=== PATIENT | female | born 1940 | race Caucasian/White ===

== ENCOUNTER 2018-05-17 21:42 | Inpatient (IN) | payer MEDICARE, MEDICAID ==
[2018-05-17] MEDS ORDERED: Sulfamethoxazole/Trimethoprim 800-160 MG Tab PO ONE (22:42)
--- NOTE | 2018-05-17 22:44 | EDM.PDOC ---
ED HPI GENERAL MEDICAL PROBLEM - General Chief Complaint: Fever Stated Complaint: [facility] Time Seen by Provider: 05/17/18 21:55 Source of Information: Reports: Family (Daughter + granddaughter), Residential Records (From [facility]) History Limitations: Reports: Altered Mental Status (Confused) - History of Present Illness INITIAL COMMENTS - FREE TEXT/NARRATIVE: The patient was sent from [facility] with a complaint of confusion, fever, and urinary incontinence. It is unclear how long the patient has had these symptoms. Here in the ED, the patient is hemodynamically stable, however, she is found to have a fever of 101.8. She denies having any pain, including a headache. The patient's PCP is Dr. Janessa Lew. - Related Data Allergies Allergy/AdvReac Type Severity Reaction Status Date / Time egg Allergy Cannot Verified 05/17/18 22:38 Remember morphine Allergy Vomiting Verified 05/17/18 22:37 NSAIDS (Non-Steroidal Allergy Cannot Verified 05/17/18 22:38 Anti-Inflamma Remember Penicillins Allergy Hives Verified 05/17/18 22:37 Difnsqi-Zhv-Tul Reductase Allergy Cannot Verified 05/17/18 22:37 Inhibitor Remember Home Meds: Home Meds Aspirin [Lo-Dose Aspirin EC] 81 mg PO BEDTIME 05/17/18 [History] Atenolol 100 mg PO DAILY 05/17/18 [History] Fluticasone Furoate [Flonase Sensimist] 1 spray NASBOTH BID 05/17/18 [History] Furosemide [Lasix] 20 mg PO DAILY 05/17/18 [History] Isosorbide Mononitrate [Imdur] 30 mg PO DAILY 05/17/18 [History] Levothyroxine [Sythroid] 100 mcg PO DAILY 05/17/18 [History] Loratadine [Claritin] 10 mg PO BEDTIME 05/17/18 [History] Melatonin 10 mg PO BEDTIME 05/17/18 [History] Multivit-Min/Iron Fum/Folic AC [Tcnhv-Rjddwuy-Tqkzsjgw Tablet] 1 tab PO DAILY [History] Nitroglycerin [Nitrostat] 0.4 mg SL ASDIRECTED PRN 05/17/18 [History] Ranitidine HCl [Zantac 75] 1 tab PO BID 05/17/18 [History] amLODIPine Besylate [Amlodipine Besylate] 5 mg PO DAILY 05/17/18 [History] atorvaSTATin [Lipitor] 40 mg PO BEDTIME 05/17/18 [History] Past Medical History Cardiovascular History: Reports: CAD, High Cholesterol, Hypertension, PA (Jan 2004), Other (See Below) (Cerebrovascular disease) Respiratory History: Reports: SOB (nightly CPAP) Genitourinary History: Reports: Chronic Renal Insuffiency (Stage V), Urinary Incontinence, UTI, Recurrent Neurological History: Reports: CVA (April 2004) Endocrine/Metabolic History: Reports: Hypothyroidism - Past Surgical History Cardiovascular Surgical History: Reports: Coronary Artery Bypass (x 4 vessel, 2007) GI Surgical History: Reports: Cholecystectomy Female Surgical History: Reports: Section (x 1), D&C (x 1) Social & Family History - Family History Family Medical History: Noncontributory - Tobacco Use Smoking Status *Q: Former Smoker Years of Tobacco use: 48 Packs/Tins Daily: 2 Month/Year Tobacco Last Used: Quit 2003 - Caffeine Use Caffeine Use: Reports: None - Alcohol Use Alcohol Use History: No - Recreational Drug Use Recreational Drug Use: No - Living Situation & Occupation Living situation: Reports: Single, Assisted Living ([facility]) Occupation: Retired ED ROS GENERAL - Review of Systems Review Of Systems: ROS reveals no pertinent complaints other than HPI. ED EXAM, GENERAL - Physical Exam Exam: See Below Exam Limited By: No Limitations General Appearance: Alert, WD/WN, No Apparent Distress Eye Exam: Bilateral Eye: Normal Inspection Ears: Normal External Exam, Hearing Grossly Normal Nose: Normal Inspection, No Blood Throat/Mouth: Normal Inspection, Normal Lips, Normal Voice, No Airway Compromise Head: Atraumatic, Normocephalic Neck: Normal Inspection, Full Range of Motion Respiratory/Chest: No Respiratory Distress, Lungs Clear, Normal Breath Sounds, No Accessory Muscle Use Cardiovascular: Normal Peripheral Pulses, Regular Rate, Rhythm, No Edema, No Gallop, No JVD, No Murmur, No Rub Peripheral Pulses: 4+: Radial (L), Radial (R) GI/Abdominal: Normal Bowel Sounds, Soft, Non-Tender, No Organomegaly, No Distention, No Abnormal Bruit, No Mass (Female) Exam: Deferred Rectal (Female) Exam: Deferred Back Exam: Normal Inspection, Full Range of Motion, NT Extremities: Normal Inspection, Normal Range of Motion, No Pedal Edema, Normal Capillary Refill Neurological: Alert, No Motor/Sensory Deficits (Moves all extremities spontaneously), Other (Confused, disoriented. Generally weak.) Psychiatric: Other (Unable to assess) Skin Exam: Warm, Dry, Intact, Normal Color, No Rash EKG INTERPRETATION EKG Date: 05/17/18 Time: 22:11 Rhythm: NSR Rate (Beats/Min): 63 [place]: Normal P-Wave: Present (1st degree AVB) QRS: Normal ST-T: Normal QT: Normal Comparison: NA - No Prior EKG Course - Vital Signs Last Recorded V/S: Last Vital Signs Temp 38.8 C H 05/17/18 21:45 Pulse 69 05/17/18 21:45 Resp 18 05/17/18 21:45 BP 163/61 H 05/17/18 21:45 Pulse Ox 94 L 05/17/18 21:45 - Orders/Labs/Meds Orders: Active Orders 24 hr Category Date Time Status EKG Documentation Completion [RC] STAT Care 05/17/18 22:01 Active Chest 2V [CR] Stat Exams 05/17/18 22:03 Taken CULTURE BLOOD [BC] Stat Lab 05/17/18 22:35 Received CULTURE BLOOD [BC] Stat Lab 05/17/18 22:40 Received CULTURE URINE [RM] Stat Lab 05/17/18 21:00 Received INFLUENZA A+B AG SCREEN [RM] Stat Lab 05/17/18 22:17 Ordered Blood Culture x2 Reflex Set [OM.PC] Stat Oth 05/17/18 22:01 Ordered Labs: Laboratory Tests 05/17/18 05/17/18 05/17/18 Range/Units 21:50 22:35 22:35 WBC 8.65 (3.98-10.04) K/mm3 RBC 4.29 (3.98-5.22) M/mm3 Hgb 12.4 (11.2-15.7) gm/L Hct 39.3 (34.1-44.9) % MCV 91.6 (79.4-94.8) fl MCH 28.9 (25.6-32.2) pg MCHC 31.6 L (32.2-35.5) g/dl RDW Std Deviation 49.6 H (36.4-46.3) fL Plt Count 146 L (182-369) K/mm3 MPV 11.1 (9.4-12.3) fl Neutrophils % (Manual) 69 H (40-60) % Band Neutrophils % 0 (0-10) % Lymphocytes % (Manual) 24 (20-40) % Atypical Lymphs % 0 % Monocytes % (Manual) 6 (2-10) % Eosinophils % (Manual) 0 L (0.7-5.8) % Basophils % (Manual) 1 (0.1-1.2) Platelet Estimate Adequate Plt Morphology Comment Normal Anisocytosis 1+ slight RBC Morph Comment Not Reportable PT 10.9 (9.5-12.1) SECONDS INR 1.00 APTT 29 (24-31) SECONDS D-Dimer, Quantitative 2.70 H (0.19-0.50) mg/L Sodium (136-145) mEq/L Potassium (3.5-5.1) mEq/L Chloride (98-107) mEq/L Carbon Dioxide (21-32) mEq/L Anion Gap (5-15) BUN (7-18) mg/dL Creatinine (0.55-1.02) mg/dL Est Cr Clr Drug Dosing mL/min Estimated GFR (MDRD) (>60) mL/min BUN/Creatinine Ratio (14-18) Glucose (83-115) mg/dL Lactic Acid (0.4-2.0) mmol/L Calcium (8.5-10.1) mg/dL Magnesium (1.8-2.4) mg/dl Total Bilirubin (0.2-1.0) mg/dL AST (15-37) U/L ALT (14-59) U/L Alkaline Phosphatase (46-116) U/L Troponin I (0.00-0.056) ng/mL Total Protein (6.4-8.2) g/dl Albumin (3.4-5.0) g/dl Globulin gm/dL Albumin/Globulin Ratio (1-2) Urine Color Light yellow (Yellow) Urine Appearance Slt cloudy H (Clear) Urine pH 6.0 (5.0-8.0) Ur Specific [place] 1.020 (1.005-1.030) Urine Protein 2+ H (Negative) Urine Glucose (UA) Negative (Negative) Urine Ketones Negative (Negative) Urine Occult Blood Trace-intact H (Negative) Urine Nitrite Negative (Negative) Urine Bilirubin Negative (Negative) Urine Urobilinogen 0.2 (0.2-1.0) Ur Leukocyte Esterase 1+ H (Negative) Urine RBC 0-5 (0-5) /hpf Urine WBC 40-50 H (0-5) /hpf Ur Epithelial Cells 0-5 (0-5) /hpf Urine Bacteria Many H (FEW) /hpf Urine Mucus Not seen (FEW) /hpf 05/17/18 05/17/18 Range/Units 22:35 22:35 WBC (3.98-10.04) K/mm3 RBC (3.98-5.22) M/mm3 Hgb (11.2-15.7) gm/L Hct (34.1-44.9) % MCV (79.4-94.8) fl MCH (25.6-32.2) pg MCHC (32.2-35.5) g/dl RDW Std Deviation (36.4-46.3) fL Plt Count (182-369) K/mm3 MPV (9.4-12.3) fl Neutrophils % (Manual) (40-60) % Band Neutrophils % (0-10) % Lymphocytes % (Manual) (20-40) % Atypical Lymphs % % Monocytes % (Manual) (2-10) % Eosinophils % (Manual) (0.7-5.8) % Basophils % (Manual) (0.1-1.2) Platelet Estimate Plt Morphology Comment Anisocytosis RBC Morph Comment PT (9.5-12.1) SECONDS INR APTT (24-31) SECONDS D-Dimer, Quantitative (0.19-0.50) mg/L Sodium 137 (136-145) mEq/L Potassium 4.5 (3.5-5.1) mEq/L Chloride 103 (98-107) mEq/L Carbon Dioxide 23 (21-32) mEq/L Anion Gap 15.5 H (5-15) BUN 46 H (7-18) mg/dL Creatinine 3.1 H (0.55-1.02) mg/dL Est Cr Clr Drug Dosing 12.37 mL/min Estimated GFR (MDRD) 15 (>60) mL/min BUN/Creatinine Ratio 14.8 (14-18) Glucose 115 (83-115) mg/dL Lactic Acid 1.0 (0.4-2.0) mmol/L Calcium 8.8 (8.5-10.1) mg/dL Magnesium 1.9 (1.8-2.4) mg/dl Total Bilirubin 0.6 (0.2-1.0) mg/dL AST 17 (15-37) U/L ALT 20 (14-59) U/L Alkaline Phosphatase 109 (46-116) U/L Troponin I < 0.017 (0.00-0.056) ng/mL Total Protein 7.9 (6.4-8.2) g/dl Albumin 3.6 (3.4-5.0) g/dl Globulin 4.3 gm/dL Albumin/Globulin Ratio 0.8 L (1-2) Urine Color (Yellow) Urine Appearance (Clear) Urine pH (5.0-8.0) Ur Specific [place] (1.005-1.030) Urine Protein (Negative) Urine Glucose (UA) (Negative) Urine Ketones (Negative) Urine Occult Blood (Negative) Urine Nitrite (Negative) Urine Bilirubin (Negative) Urine Urobilinogen (0.2-1.0) Ur Leukocyte Esterase (Negative) Urine RBC (0-5) /hpf Urine WBC (0-5) /hpf Ur Epithelial Cells (0-5) /hpf Urine Bacteria (FEW) /hpf Urine Mucus (FEW) /hpf Meds: Medications Discontinued Medications Generic Name Dose Route Start Last Admin Trade Name Freq PRN Reason Stop Dose Admin Trimethoprim/Sulfamethoxazole 1 tab 05/17/18 22:42 05/17/18 23:05 Septra Ds PO 05/17/18 22:43 1 tab ONETIME ONE Administration - Re-Assessments/Exams Free Text/Narrative Re-Assessment/Exam: 05/17/18 22:43 The patient's urinalysis is consistent with a UTI. I have ordered a urine culture, and will start the patient on oral Bactrim. 05/17/18 22:58 2-view chest radiograph reviewed. Cardiac silhouette is within normal limits. No pulmonary vascular congestion. No pleural effusions. No focal infiltrate. No pneumothorax. Sternotomy wires and cardiac clips noted, consistent with a prior CABG. Formal read per the Radiologist pending. 05/17/18 23:14 The patient's D-dimer returned elevated at 2.70, however, the patient's BUN/Cr are substantially elevated at 46/3.1. The height of the patient's d-dimer is consistent with this degree of renal insufficiency. The remainder of the patient's workup is unremarkable. It appears that the patient's confusion and fever are due to a UTI. I'm told that the patient was unable to stand or even sit up reliably, therefore she will need to be placed into observation until well enough to return to [facility] assisted living. 05/17/18 23:[address] Perry at 23:16. She agrees to place the patient into observation. Departure - Departure Time of Disposition: 23:18 Disposition: Refer to Observation Condition: Fair Clinical Impression: UTI (urinary tract infection), Generalized weakness, Chronic kidney disease - Discharge Information - My Orders Last 24 Hours: My Active Orders 05/17/18 21:00 CULTURE URINE [RM] Stat 05/17/18 22:01 EKG Documentation Completion [RC] STAT Blood Culture x2 Reflex Set [OM.PC] Stat 05/17/18 22:03 Chest 2V [CR] Stat 05/17/18 22:17 INFLUENZA A+B AG SCREEN [RM] Stat 05/17/18 22:35 CULTURE BLOOD [BC] Stat 05/17/18 22:40 CULTURE BLOOD [BC] Stat - Assessment/Plan Last 24 Hours: My Active Orders 05/17/18 21:00 CULTURE URINE [RM] Stat 05/17/18 22:01 EKG Documentation Completion [RC] STAT Blood Culture x2 Reflex Set [OM.PC] Stat 05/17/18 22:03 Chest 2V [CR] Stat 05/17/18 22:17 INFLUENZA A+B AG SCREEN [RM] Stat 05/17/18 22:35 CULTURE BLOOD [BC] Stat 05/17/18 22:40 CULTURE BLOOD [BC] Stat
[2018-05-18] MEDS ORDERED: Sodium Chloride 0.9% 100 ML ONE (00:24)
[2018-05-18] MEDS ORDERED: Acetaminophen 325 MG Tab PO PRN (00:47)
[2018-05-18] MEDS ORDERED: Ondansetron 4 MG/2 ML SDV IVPUSH PRN (00:48)
[2018-05-18] MEDS ORDERED: Temazepam 7.5 MG Cap PO PRN (00:49)
[2018-05-18] MEDS ORDERED: cefTRIAXone 2 GM in Sodium Chloride 0.9% 100 ML IV SCH (01:00)
[2018-05-18] MEDS: Sodium Chloride 0.9% 1,000 ML IV SCH ×3 (01:16→23:47)
[2018-05-18] MEDS: Heparin Sodium 5,000 Units/ML Vial SUBCUT SCH ×3 (03:50→20:17)
--- NOTE | 2018-05-18 08:59 | PCM.HP ---
H&P History of Present Illness - General Date of Service: 05/18/18 Admit Problem/Dx: Admission Diagnosis/Problem Admission Diagnosis/Problem Urinary tract infection Source of Information: Provider History Limitations: Reports: No Limitations - History of Present Illness Initial Comments - Free Text/Narative: 78 year old [facility] resident with AMS, developed an elevated temperature, 101.8F in the ED. No known sick contacts; a UA suggest AUTI.. She received Bactrim DS in the ED. PE and labs support dehydration. The patient has CKD IV- V, there is acute renal failure; D dimer is elevated in that setting therefore unlikely related to a PE. She will be admitted as an observation with telemetry. The patient has a code status of DNR/DNI. Onset of Symptoms: Reports: Unknown/Unsure Duration of Symptoms: Reports: Day(s):, Getting Worse Location: Reports: Generalized Severity: Moderate Improves with: Reports: Medication Worsens with: Reports: None Associated Symptoms: Reports: Confusion, Fever/Chills, Malaise, Weakness - Related Data Allergies/Adverse Reactions: Allergies Allergy/AdvReac Type Severity Reaction Status Date / Time egg Allergy Cannot Verified 05/18/18 02:33 Remember NSAIDS (Non-Steroidal Allergy Cannot Verified 05/18/18 02:33 Anti-Inflamma Remember Penicillins Allergy Hives Verified 05/18/18 02:33 Psuifzm-Oxs-Juj Reductase Allergy Cannot Verified 05/18/18 02:33 Inhibitor Remember morphine AdvReac Vomiting Verified 05/18/18 09:45 Home Medications: Home Meds Aspirin [Lo-Dose Aspirin EC] 81 mg PO BEDTIME 05/17/18 [History] Atenolol 100 mg PO DAILY 05/17/18 [History] Fluticasone Furoate [Flonase Sensimist] 1 spray NASBOTH BID 05/17/18 [History] Furosemide [Lasix] 20 mg PO DAILY 05/17/18 [History] Isosorbide Mononitrate [Imdur] 30 mg PO DAILY 05/17/18 [History] Levothyroxine [Sythroid] 100 mcg PO DAILY 05/17/18 [History] Loratadine [Claritin] 10 mg PO BEDTIME 05/17/18 [History] Melatonin 10 mg PO BEDTIME 05/17/18 [History] Multivit-Min/Iron Fum/Folic AC [Dkxyk-Wuzjeiq-Cepluriw Tablet] 1 tab PO DAILY [History] Nitroglycerin [Nitrostat] 0.4 mg SL ASDIRECTED PRN 05/17/18 [History] Ranitidine HCl [Zantac 75] 1 tab PO BID 05/17/18 [History] amLODIPine Besylate [Amlodipine Besylate] 5 mg PO DAILY 05/17/18 [History] atorvaSTATin [Lipitor] 40 mg PO BEDTIME 05/17/18 [History] Acetaminophen [Tylenol] 1,000 mg PO Q8HR PRN 05/18/18 [History] Loperamide [Imodium AD] 2 - 4 caplet PO ASDIRECTED PRN 05/18/18 [History] Past Medical History HEENT History: Reports: Impaired Vision, Other (See Below) Other HEENT History: pt wears galsses and has an upper denture Cardiovascular History: Reports: CAD, High Cholesterol, Hypertension, CA (Jan 2004), Other (See Below) (Cerebrovascular disease) Respiratory History: Reports: SOB (nightly CPAP) Other Respiratory History: pt has a cpap machine and brought it in with her to the hospital. Gastrointestinal History: Reports: None Genitourinary History: Reports: Chronic Renal Insuffiency (Stage V), Urinary Incontinence, UTI, Recurrent Neurological History: Reports: CVA (April 2004) Endocrine/Metabolic History: Reports: Hypothyroidism - Infectious Disease History Infectious Disease History: Reports: Influenza - Past Surgical History Cardiovascular Surgical History: Reports: Coronary Artery Bypass (x 4 vessel, 2007) GI Surgical History: Reports: Cholecystectomy Female Surgical History: Reports: Section (x 1), D&C (x 1) Social & Family History - Family History Family Medical History: Noncontributory - Tobacco Use Smoking Status *Q: Former Smoker Years of Tobacco use: 48 Packs/Tins Daily: 2 Used Tobacco, but Quit: No Month/Year Tobacco Last Used: Quit 2003 Second Hand Smoke Exposure: No - Caffeine Use Caffeine Use: Reports: None - Recreational Drug Use Recreational Drug Use: No - Living Situation & Occupation Living situation: Reports: Single, Assisted Living ([facility]) Occupation: Retired H&P Review of Systems - Review of Systems: Review Of Systems: See Below General: Reports: Fever, Chills, Malaise, Weakness, Decreased Appetite HEENT: Reports: No Symptoms Pulmonary: Reports: No Symptoms Cardiovascular: Reports: No Symptoms Gastrointestinal: Reports: No Symptoms Genitourinary: Reports: No Symptoms Musculoskeletal: Reports: No Symptoms Skin: Reports: No Symptoms Psychiatric: Reports: Confusion Neurological: Reports: Confusion Hematologic/Lymphatic: Reports: No Symptoms Immunologic: Reports: No Symptoms Exam - Exam Exam: See Below - Vital Signs Vital Signs: Last Vital Signs Temp 37.9 C 05/18/18 04:41 Pulse 68 05/18/18 04:41 Resp 14 05/18/18 04:41 BP 134/72 05/18/18 04:41 Pulse Ox 97 05/18/18 04:41 Weight: 64.954 kg - Exam Quality Assessment: Supplemental Oxygen, DVT Prophylaxis General: Lethargic HEENT: Conjunctiva Clear, EOMI, Normal Nasal Septum, Pupils Equal, Pupils Reactive, PERRLA Neck: Trachea Midline Lungs: Normal Respiratory Effort Cardiovascular: Regular Rate, Regular Rhythm GI/Abdominal Exam: Normal Bowel Sounds, Soft, Non-Tender, No Organomegaly, No Distention (Female) Exam: Deferred Rectal (Female) Exam: Deferred Back Exam: Normal Inspection Extremities: Normal Inspection, Normal Range of Motion, Non-Tender, No Pedal Edema, Slow Capillary Refill Skin: Warm, Dry, Intact Neurological: Cranial Nerves Intact Neuro Extensive - Mental Status: Other (lethargic) Neuro Extensive - Motor, Sensory, Reflexes: CN II-XII Intact Psychiatric: Other (lethargic) - Patient Data Lab Results Last 24 hrs: Laboratory Results - last 24 hr 05/17/18 05/17/18 05/17/18 Range/Units 21:50 22:35 22:35 WBC 8.65 (3.98-10.04) K/mm3 RBC 4.29 (3.98-5.22) M/mm3 Hgb 12.4 (11.2-15.7) gm/L Hct 39.3 (34.1-44.9) % MCV 91.6 (79.4-94.8) fl MCH 28.9 (25.6-32.2) pg MCHC 31.6 L (32.2-35.5) g/dl RDW Std Deviation 49.6 H (36.4-46.3) fL Plt Count 146 L (182-369) K/mm3 MPV 11.1 (9.4-12.3) fl Neut % (Auto) (34.0-71.1) % Lymph % (Auto) (19.3-51.7) % [place] % (Auto) (4.7-12.5) % Eos % (Auto) (0.7-5.8) Baso % (Auto) (0.1-1.2) % Neut # (Auto) (1.56-6.13) K/mm3 Lymph # (Auto) (1.18-3.74) K/mm3 [place] # (Auto) (0.24-0.36) K/mm3 Eos # (Auto) (0.04-0.36) K/mm3 Baso # (Auto) (0.01-0.08) K/mm3 Neutrophils % (Manual) 69 H (40-60) % Band Neutrophils % 0 (0-10) % Lymphocytes % (Manual) 24 (20-40) % Atypical Lymphs % 0 % Monocytes % (Manual) 6 (2-10) % Eosinophils % (Manual) 0 L (0.7-5.8) % Basophils % (Manual) 1 (0.1-1.2) Platelet Estimate Adequate Plt Morphology Comment Normal Anisocytosis 1+ slight RBC Morph Comment Not Reportable PT 10.9 (9.5-12.1) SECONDS INR 1.00 APTT 29 (24-31) SECONDS D-Dimer, Quantitative 2.70 H (0.19-0.50) mg/L Sodium (136-145) mEq/L Potassium (3.5-5.1) mEq/L Chloride (98-107) mEq/L Carbon Dioxide (21-32) mEq/L Anion Gap (5-15) BUN (7-18) mg/dL Creatinine (0.55-1.02) mg/dL Est Cr Clr Drug Dosing mL/min Estimated GFR (MDRD) (>60) mL/min BUN/Creatinine Ratio (14-18) Glucose (83-115) mg/dL Lactic Acid (0.4-2.0) mmol/L Calcium (8.5-10.1) mg/dL Magnesium (1.8-2.4) mg/dl Total Bilirubin (0.2-1.0) mg/dL AST (15-37) U/L ALT (14-59) U/L Alkaline Phosphatase (46-116) U/L Troponin I (0.00-0.056) ng/mL C-Reactive Protein (<1.0) mg/dL Total Protein (6.4-8.2) g/dl Albumin (3.4-5.0) g/dl Globulin gm/dL Albumin/Globulin Ratio (1-2) Urine Color Light yellow (Yellow) Urine Appearance Slt cloudy H (Clear) Urine pH 6.0 (5.0-8.0) Ur Specific [place] 1.020 (1.005-1.030) Urine Protein 2+ H (Negative) Urine Glucose (UA) Negative (Negative) Urine Ketones Negative (Negative) Urine Occult Blood Trace-intact H (Negative) Urine Nitrite Negative (Negative) Urine Bilirubin Negative (Negative) Urine Urobilinogen 0.2 (0.2-1.0) Ur Leukocyte Esterase 1+ H (Negative) Urine RBC 0-5 (0-5) /hpf Urine WBC 40-50 H (0-5) /hpf Ur Epithelial Cells 0-5 (0-5) /hpf Urine Bacteria Many H (FEW) /hpf Urine Mucus Not seen (FEW) /hpf MRSA (PCR) 05/17/18 05/17/18 05/18/18 Range/Units 22:35 22:35 00:40 WBC (3.98-10.04) K/mm3 RBC (3.98-5.22) M/mm3 Hgb (11.2-15.7) gm/L Hct (34.1-44.9) % MCV (79.4-94.8) fl MCH (25.6-32.2) pg MCHC (32.2-35.5) g/dl RDW Std Deviation (36.4-46.3) fL Plt Count (182-369) K/mm3 MPV (9.4-12.3) fl Neut % (Auto) (34.0-71.1) % Lymph % (Auto) (19.3-51.7) % [place] % (Auto) (4.7-12.5) % Eos % (Auto) (0.7-5.8) Baso % (Auto) (0.1-1.2) % Neut # (Auto) (1.56-6.13) K/mm3 Lymph # (Auto) (1.18-3.74) K/mm3 [place] # (Auto) (0.24-0.36) K/mm3 Eos # (Auto) (0.04-0.36) K/mm3 Baso # (Auto) (0.01-0.08) K/mm3 Neutrophils % (Manual) (40-60) % Band Neutrophils % (0-10) % Lymphocytes % (Manual) (20-40) % Atypical Lymphs % % Monocytes % (Manual) (2-10) % Eosinophils % (Manual) (0.7-5.8) % Basophils % (Manual) (0.1-1.2) Platelet Estimate Plt Morphology Comment Anisocytosis RBC Morph Comment PT (9.5-12.1) SECONDS INR APTT (24-31) SECONDS D-Dimer, Quantitative (0.19-0.50) mg/L Sodium 137 (136-145) mEq/L Potassium 4.5 (3.5-5.1) mEq/L Chloride 103 (98-107) mEq/L Carbon Dioxide 23 (21-32) mEq/L Anion Gap 15.5 H (5-15) BUN 46 H (7-18) mg/dL Creatinine 3.1 H (0.55-1.02) mg/dL Est Cr Clr Drug Dosing 12.37 mL/min Estimated GFR (MDRD) 15 (>60) mL/min BUN/Creatinine Ratio 14.8 (14-18) Glucose 115 (83-115) mg/dL Lactic Acid 1.0 (0.4-2.0) mmol/L Calcium 8.8 (8.5-10.1) mg/dL Magnesium 1.9 (1.8-2.4) mg/dl Total Bilirubin 0.6 (0.2-1.0) mg/dL AST 17 (15-37) U/L ALT 20 (14-59) U/L Alkaline Phosphatase 109 (46-116) U/L Troponin I < 0.017 (0.00-0.056) ng/mL C-Reactive Protein (<1.0) mg/dL Total Protein 7.9 (6.4-8.2) g/dl Albumin 3.6 (3.4-5.0) g/dl Globulin 4.3 gm/dL Albumin/Globulin Ratio 0.8 L (1-2) Urine Color (Yellow) Urine Appearance (Clear) Urine pH (5.0-8.0) Ur Specific [place] (1.005-1.030) Urine Protein (Negative) Urine Glucose (UA) (Negative) Urine Ketones (Negative) Urine Occult Blood (Negative) Urine Nitrite (Negative) Urine Bilirubin (Negative) Urine Urobilinogen (0.2-1.0) Ur Leukocyte Esterase (Negative) Urine RBC (0-5) /hpf Urine WBC (0-5) /hpf Ur Epithelial Cells (0-5) /hpf Urine Bacteria (FEW) /hpf Urine Mucus (FEW) /hpf MRSA (PCR) Negative 05/18/18 05/18/18 05/18/18 Range/Units 06:32 06:32 06:32 WBC 10.30 H (3.98-10.04) K/mm3 RBC 4.19 (3.98-5.22) M/mm3 Hgb 12.2 (11.2-15.7) gm/L Hct 38.4 (34.1-44.9) % MCV 91.6 (79.4-94.8) fl MCH 29.1 (25.6-32.2) pg MCHC 31.8 L (32.2-35.5) g/dl RDW Std Deviation 50.2 H (36.4-46.3) fL Plt Count 140 L (182-369) K/mm3 MPV 11.2 (9.4-12.3) fl Neut % (Auto) 74.6 H (34.0-71.1) % Lymph % (Auto) 18.7 L (19.3-51.7) % [place] % (Auto) 6.2 (4.7-12.5) % Eos % (Auto) 0 L (0.7-5.8) Baso % (Auto) 0.4 (0.1-1.2) % Neut # (Auto) 7.68 H (1.56-6.13) K/mm3 Lymph # (Auto) 1.93 (1.18-3.74) K/mm3 [place] # (Auto) 0.64 H (0.24-0.36) K/mm3 Eos # (Auto) 0.00 L (0.04-0.36) K/mm3 Baso # (Auto) 0.04 (0.01-0.08) K/mm3 Neutrophils % (Manual) (40-60) % Band Neutrophils % (0-10) % Lymphocytes % (Manual) (20-40) % Atypical Lymphs % % Monocytes % (Manual) (2-10) % Eosinophils % (Manual) (0.7-5.8) % Basophils % (Manual) (0.1-1.2) Platelet Estimate Plt Morphology Comment Anisocytosis RBC Morph Comment PT (9.5-12.1) SECONDS INR APTT (24-31) SECONDS D-Dimer, Quantitative (0.19-0.50) mg/L Sodium 137 (136-145) mEq/L Potassium 4.2 (3.5-5.1) mEq/L Chloride 104 (98-107) mEq/L Carbon Dioxide 20 L (21-32) mEq/L Anion Gap 17.2 H (5-15) BUN 46 H (7-18) mg/dL Creatinine 2.9 H (0.55-1.02) mg/dL Est Cr Clr Drug Dosing 12.64 mL/min Estimated GFR (MDRD) 16 (>60) mL/min BUN/Creatinine Ratio 15.9 (14-18) Glucose 118 H (83-115) mg/dL Lactic Acid 1.1 (0.4-2.0) mmol/L Calcium 8.6 (8.5-10.1) mg/dL Magnesium 1.9 (1.8-2.4) mg/dl Total Bilirubin (0.2-1.0) mg/dL AST (15-37) U/L ALT (14-59) U/L Alkaline Phosphatase (46-116) U/L Troponin I (0.00-0.056) ng/mL C-Reactive Protein 7.4 H* (<1.0) mg/dL Total Protein (6.4-8.2) g/dl Albumin (3.4-5.0) g/dl Globulin gm/dL Albumin/Globulin Ratio (1-2) Urine Color (Yellow) Urine Appearance (Clear) Urine pH (5.0-8.0) Ur Specific [place] (1.005-1.030) Urine Protein (Negative) Urine Glucose (UA) (Negative) Urine Ketones (Negative) Urine Occult Blood (Negative) Urine Nitrite (Negative) Urine Bilirubin (Negative) Urine Urobilinogen (0.2-1.0) Ur Leukocyte Esterase (Negative) Urine RBC (0-5) /hpf Urine WBC (0-5) /hpf Ur Epithelial Cells (0-5) /hpf Urine Bacteria (FEW) /hpf Urine Mucus (FEW) /hpf MRSA (PCR) Result Diagrams: 05/18/18 06:32 05/18/18 06:32 Luis Results Last 24 hrs: Microbiology 05/17/18 22:17 Influenza Type A Antigen Screen - Final Nasopharyngeal Swab NEGATIVE INFLUENZA A VIRUS AG Influenza Type B Antigen Screen - Final NEGATIVE INFLUENZA B VIRUS AG Problem List Initiated/Reviewed/Updated: Yes Orders Last 24hrs: Active Orders 24 hr Category Date Time Status Patient Status [ADT] Routine ADT 05/17/18 23:58 Active Activity as Tolerated [RC] .Routine Care 05/18/18 01:01 Active CPAP Adult [RT BiPAP/CPAP] [RC] ASDIRECTED Care 05/18/18 01:02 Active Communication Order [RC] 09,21 Care 05/18/18 00:50 Active Clear Liquid Diet [DIET] Diet 05/18/18 Breakfast Active Chest 2V [CR] Stat Exams 05/17/18 22:03 Taken CBC W/O DIFF,HEMOGRAM [HEME] MOTH@0700 Lab 05/19/18 07:00 Ordered CBC W/O DIFF,HEMOGRAM [HEME] MOTH@0700 Lab 05/22/18 07:00 Ordered CBC W/O DIFF,HEMOGRAM [HEME] MOTH@0700 Lab 05/26/18 07:00 Ordered CBC W/O DIFF,HEMOGRAM [HEME] MOTH@0700 Lab 05/29/18 07:00 Ordered CBC W/O DIFF,HEMOGRAM [HEME] MOTH@0700 Lab 06/02/18 07:00 Ordered CBC W/O DIFF,HEMOGRAM [HEME] MOTH@0700 Lab 06/05/18 07:00 Ordered CULTURE BLOOD [BC] Stat Lab 05/17/18 22:35 Received CULTURE BLOOD [BC] Stat Lab 05/17/18 22:40 Received CULTURE URINE [RM] Stat Lab 05/17/18 21:00 Received INFLUENZA A+B AG SCREEN [RM] Stat Lab 05/17/18 22:17 Ordered Acetaminophen [Tylenol] Med 05/18/18 00:47 Active 650 mg PO Q6H PRN Heparin Sodium Med 05/18/18 04:00 Active 5,000 units SUBCUT Q8H Ondansetron [Zofran] Med 05/18/18 00:48 Active 4 mg IVPUSH Q8H PRN Sodium Chloride 0.9% [Normal Saline] 1,000 ml Med 05/18/18 00:45 Active IV ASDIRECTED Temazepam [Restoril] Med 05/18/18 00:49 Active 7.5 mg PO BEDTIME PRN cefTRIAXone [Rocephin] 2 gm Med 05/18/18 01:00 Active Sodium Chloride 0.9% [Normal Saline] 100 ml IV Q24H Blood Culture x2 Reflex Set [OM.PC] Stat Ot 05/17/18 22:01 Ordered Code Status [Resuscitation Status] Routine Resus Stat 05/18/18 00:42 Ordered Medication Orders Acetaminophen (Tylenol) 650 mg PO Q6H PRN PRN Reason: Pain/Fever Heparin Sodium (Porcine) (Heparin Sodium) 5,000 units SUBCUT Q8H [facility] Last Admin: 05/18/18 03:50 Dose: 5,000 units Sodium Chloride (Normal Saline) 1,000 mls @ 100 mls/hr IV ASDIRECTED [facility] Last Admin: 05/18/18 01:16 Dose: 100 mls/hr Ceftriaxone Sodium 2 gm/ (Sodium Chloride) 100 mls @ 100 mls/hr IV Q24H [facility] Last Admin: 05/18/18 01:16 Dose: 100 mls/hr Ondansetron HCl (Zofran) 4 mg IVPUSH Q8H PRN PRN Reason: Nausea Temazepam (Restoril) 7.5 mg PO BEDTIME PRN PRN Reason: Sleep Assessment/Plan Comment:: Impression: Acute mental status change Acute UTI Hx of urinary incontinence Acute renal failure, prerenal Hx of CKD, stage V Elevated D Dimer, doubt PE; likely from renal disease Chronic CAD; hx of CABG; hxz of CA CVA HLD HTN SUKHWINDER on CPAP Former tobacco; COPD Plan: Check TSH; FLP IVF Rocephin; await sensitivity from UrCx Daily labs Home meds DVT/GI prophylaxis Consult CM/PT/OT.
[2018-05-18] MEDS ORDERED: Nitroglycerin 0.4 MG Tab.SL SL PRN (09:52)
[2018-05-18] MEDS ORDERED: guaiFENesin/Dextromethorphan 100-10 MG/5 ML Soln 5 ML Cup PO PRN (17:43)
[2018-05-18] MEDS: Loratadine 10 MG Tab PO SCH (20:17)
[2018-05-18] MEDS: Aspirin 81 MG Tab.EC PO SCH (20:17)
[2018-05-18] MEDS ORDERED: Non-Formulary Medication 1 Each (Melatonin [Melatonin] 10 MG) PO SCH (21:00)
[2018-05-19] MEDS: Heparin Sodium 5,000 Units/ML Vial SUBCUT SCH ×3 (04:42→20:48)
[2018-05-19] MEDS: Levothyroxine 100 MCG Tab PO SCH (05:45)
--- NOTE | 2018-05-19 08:26 | CR ---
Chest: Two views of the chest were obtained. Comparison: Prior chest x-ray of 04/12/09. Heart size is slightly enlarged. Tortuous thoracic aorta is seen. Sternotomy for CABG is noted. Lungs are clear with no acute parenchymal densities. Bony structures are osteopenic. Mild scattered degenerative change is noted within the spine. Impression: 1. Nothing acute is seen on two-view chest x-ray. Diagnostic code #2
[2018-05-19] MEDS: Atenolol 50 MG Tab PO SCH (08:29)
[2018-05-19] MEDS: amLODIPine 5 MG Tab PO SCH (08:29)
[2018-05-19] MEDS: Isosorbide Mononitrate 30 MG Tab.ER PO SCH (08:29)
[2018-05-19] MEDS: Rosuvastatin 10 MG Tab PO SCH (08:29)
[2018-05-19] MEDS: Multivitamins,Therapeutic Tab PO SCH (08:29)
--- NOTE | 2018-05-19 10:17 | PCM.PN ---
- General Info Date of Service: 05/19/18 Admission Dx/Problem (Free Text): Admission Diagnosis/Problem Admission Diagnosis/Problem Urinary tract infection Subjective Update: In to see Jennifer. She is resting comfortably in bed. She is alert but believes she is in [place]. She resides at [facility]. She states she is not in any pain. She denies any dysuria, burning, or frequency. She also denies chest pain , dyspnea, or GI complaints. Nursing reports that patient had an appointment with Urology tomorrow and this has been rescheduled. Functional Status: Reports: Pain Controlled, Tolerating Diet, Ambulating, Urinating - Review of Systems General: Reports: Fever, Chills HEENT: Reports: No Symptoms. Denies: Sinus Congestion, Sore Throat Pulmonary: Reports: No Symptoms. Denies: Shortness of Breath, Cough Cardiovascular: Reports: No Symptoms. Denies: Chest Pain, Palpitations, Edema Gastrointestinal: Reports: No Symptoms. Denies: Abdominal Pain, Constipation, Diarrhea, Nausea, Vomiting Genitourinary: Reports: No Symptoms. Denies: Dysuria, Frequency, Burning, Incontinence Musculoskeletal: Reports: No Symptoms. Denies: Joint Pain Skin: Reports: No Symptoms. Denies: Cyanosis, Pallor Neurological: Reports: No Symptoms. Denies: Confusion, Dizziness, Headache Psychiatric: Reports: No Symptoms. Denies: Confusion, Depression - Patient Data Vitals - Most Recent: Last Vital Signs Temp 98.8 F 05/19/18 08:26 Pulse 56 L 05/19/18 08:26 Resp 18 05/19/18 08:26 BP 141/54 H 05/19/18 08:26 Pulse Ox 93 L 05/19/18 08:26 Weight - Most Recent: 142 lb 11.2 oz I&O - Last 24 Hours: Intake & Output 05/18/18 05/19/18 05/19/18 22:59 06:59 14:59 Intake Total 1920 1350 Output Total 1250 Balance 1920 100 Lab Results Last 24 Hours: Laboratory Results - last 24 hr 05/19/18 05/19/18 05/19/18 Range/Units 06:37 06:37 06:37 WBC 6.77 (3.98-10.04) K/mm3 RBC 3.91 L (3.98-5.22) M/mm3 Hgb 11.5 (11.2-15.7) gm/L Hct 36.0 (34.1-44.9) % MCV 92.1 (79.4-94.8) fl MCH 29.4 (25.6-32.2) pg MCHC 31.9 L (32.2-35.5) g/dl RDW Std Deviation 50.3 H (36.4-46.3) fL Plt Count 119 L (182-369) K/mm3 MPV 11.5 (9.4-12.3) fl Neut % (Auto) 48.9 (34.0-71.1) % Lymph % (Auto) 40.8 (19.3-51.7) % [place] % (Auto) 7.7 (4.7-12.5) % Eos % (Auto) 2.1 (0.7-5.8) Baso % (Auto) 0.4 (0.1-1.2) % Neut # (Auto) 3.31 (1.56-6.13) K/mm3 Lymph # (Auto) 2.76 (1.18-3.74) K/mm3 [place] # (Auto) 0.52 H (0.24-0.36) K/mm3 Eos # (Auto) 0.14 (0.04-0.36) K/mm3 Baso # (Auto) 0.03 (0.01-0.08) K/mm3 Sodium 138 (136-145) mEq/L Potassium 3.8 (3.5-5.1) mEq/L Chloride 107 (98-107) mEq/L Carbon Dioxide 16 L (21-32) mEq/L Anion Gap 18.8 H (5-15) BUN 47 H (7-18) mg/dL Creatinine 2.8 H (0.55-1.02) mg/dL Est Cr Clr Drug Dosing 13.10 mL/min Estimated GFR (MDRD) 16 (>60) mL/min BUN/Creatinine Ratio 16.8 (14-18) Glucose 82 L (83-115) mg/dL Lactic Acid 0.8 (0.4-2.0) mmol/L Calcium 8.2 L (8.5-10.1) mg/dL Magnesium 1.9 (1.8-2.4) mg/dl C-Reactive Protein 14.2 H* (<1.0) mg/dL Luis Results Last 24 Hours: Microbiology 05/17/18 22:40 Aerobic Blood Culture - Preliminary Blood - Venous NO GROWTH AFTER 1 DAY Anaerobic Blood Culture - Preliminary NO GROWTH AFTER 1 DAY 05/17/18 22:35 Aerobic Blood Culture - Preliminary Blood - Venous - Lab Draw NO GROWTH AFTER 1 DAY Anaerobic Blood Culture - Preliminary NO GROWTH AFTER 1 DAY 05/17/18 21:00 Urine Culture - Preliminary Urine, Quick Cath (In-Out) Gram Negative Rods Med Orders - Current: Current Medications Acetaminophen (Tylenol) 650 mg PO Q6H PRN PRN Reason: Pain/Fever Last Admin: 05/18/18 09:24 Dose: 650 mg Amlodipine Besylate (Norvasc) 5 mg PO DAILY [facility] Last Admin: 05/19/18 08:29 Dose: 5 mg Aspirin (Halfprin) 81 mg PO BEDTIME [facility] Last Admin: 05/18/18 20:17 Dose: 81 mg Atenolol (Tenormin) 100 mg PO DAILY [facility] Last Admin: 05/19/18 08:29 Dose: 100 mg Flunisolide (Nasalide Nasal [place]) 0 ml NASBOTH BID [facility] Last Admin: 05/19/18 08:27 Dose: 2 sprays Guaifenesin/Phenylephrine HCl (Robitussin Dm) 10 ml PO Q6H PRN PRN Reason: Cough Last Admin: 05/18/18 18:08 Dose: 10 ml Heparin Sodium (Porcine) (Heparin Sodium) 5,000 units SUBCUT Q8H [facility] Last Admin: 05/19/18 04:42 Dose: 5,000 units Sodium Chloride (Normal Saline) 1,000 mls @ 100 mls/hr IV ASDIRECTED [facility] Last Admin: 05/18/18 23:47 Dose: 100 mls/hr Ceftriaxone Sodium 2 gm/ (Dextrose/Water) 100 mls @ 100 mls/hr IV Q24H [facility] Last Admin: 05/19/18 08:29 Dose: 100 mls/hr Isosorbide Mononitrate (Imdur) 30 mg PO DAILY [facility] Last Admin: 05/19/18 08:29 Dose: 30 mg Levothyroxine Sodium (Synthroid) 100 mcg PO ACBREAKFAST [facility] Last Admin: 05/19/18 05:45 Dose: 100 mcg Loratadine (Claritin) 10 mg PO BEDTIME [facility] Last Admin: 05/18/18 20:17 Dose: 10 mg Multivitamins (Thera) 1 each PO DAILY [facility] Last Admin: 05/19/18 08:29 Dose: 1 each Nitroglycerin (Nitrostat) 0.4 mg SL ASDIRECTED PRN PRN Reason: chest pain Ondansetron HCl (Zofran) 4 mg IVPUSH Q8H PRN PRN Reason: Nausea Rosuvastatin Calcium (Crestor) 10 mg PO DAILY [facility] Last Admin: 05/19/18 08:29 Dose: 10 mg Temazepam (Restoril) 7.5 mg PO BEDTIME PRN PRN Reason: Sleep Discontinued Medications Sodium Chloride (Normal Saline) Confirm Administered Dose 100 mls @ as directed .ROUTE .STK-MED ONE Stop: 05/18/18 00:25 Last Admin: 05/18/18 01:16 Dose: Not Given Ceftriaxone Sodium 2 gm/ (Sodium Chloride) 100 mls @ 100 mls/hr IV Q24H [facility] Last Admin: 05/18/18 01:16 Dose: 100 mls/hr Non-Formulary Medication (Melatonin [Melatonin]) 10 mg PO BEDTIME [facility] Trimethoprim/Sulfamethoxazole (Septra Ds) 1 tab PO ONETIME ONE Stop: 05/17/18 22:43 Last Admin: 05/17/18 23:05 Dose: 1 tab - Exam Quality Assessment: No: Supplemental Oxygen General: Alert, Cooperative, No Acute Distress, Other (Oriented to person and time but believes she is in [place]) HEENT: Pupils Equal, Pupils Reactive, EOMI, Mucous Membr. Moist/[place] Neck: Supple. No: Lymphadenopathy Lungs: Clear to Auscultation, Normal Respiratory Effort Cardiovascular: Regular Rate, Regular Rhythm, No Murmurs GI/Abdominal Exam: Normal Bowel Sounds, Soft, Non-Tender, No Distention (Female) Exam: Deferred Back Exam: Normal Inspection, Full Range of Motion Extremities: Normal Inspection, Normal Range of Motion, Non-Tender, No Pedal Edema Peripheral Pulses: 1+: Posterior Tibial (L), Posterior Tibial (R), Dorsalis Pedis (L), Dorsalis Pedis (R), 2+: Radial (L), Radial (R) Skin: Warm, Dry, Intact Neurological: No New Focal Deficit, Strength Equal Bilateral, Cranial Nerves Intact (grossly ) Psy/Mental Status: Alert, Normal Affect, Normal Mood - Problem List Review Problem List Initiated/Reviewed/Updated: Yes - Plan Plan:: Impression: Acute Acute mental status change - likely 2/2 UTI - TSH pending - [place] staff report patient is normally not confused - CM/SW consult Acute UTI - Risk factors: Hx of urinary incontinence and recurrent UTIs and reported month long diarrhea - Received Bactrim in ED --> changed to Rocephin 2 gm IV q 24 hr - Urine culture preliminary report is gram negative rods - BC after 1 day show no growth - CRP 14.2, was 7.4 - Lactic acid 0.8, was 1.1 - Febrile in ED --> managed with antipyretics - IVF NS at 100 ml/hr - Outpatient Urology appointment tomorrow --> rescheduled Weakness - Likely 2/2 UTI - PT/OT consult Diarrhea - Patient reports diarrhea for past month - Likely contributing to UTI - Will order cdiff Upper respiratory symptoms - New onset - Influenza panel negative Acute renal failure, prerenal - Hx of CKD, stage V - BUN, Cr, and eGFR stable per records - Monitor Elevated D Dimer - 2.7 in ED - PE unlikely --> CXR negative and she is not having any dyspnea - Likely from renal disease Resolved Leukocytosis - WBC 10.3 in ED, now 6.77 - Likely 2/2 current medical state Chronic CAD with hx of AL and CABG --> will order lipid panel CVA HLD HTN SUKHWINDER on CPAP Former tobacco COPD Hypothyroidism --> TSH pending Plan: TSH pending Continue IVF Continue Rocephin Pending sensitivity from Urine Culture; initial report gram negative rods Routine AM labs Resume Home meds Advance diet to Heart Healthy DVT prophylaxis: SCDs Consult CM/SW Consult PT/OT
[2018-05-19] MEDS: Sodium Chloride 0.9% 1,000 ML IV SCH ×2 (11:21→21:54)
[2018-05-19] MEDS: Aspirin 81 MG Tab.EC PO SCH (20:51)
[2018-05-19] MEDS: Loratadine 10 MG Tab PO SCH (20:51)
[2018-05-20] MEDS: Levothyroxine 100 MCG Tab PO SCH (05:06)
[2018-05-20] MEDS: Heparin Sodium 5,000 Units/ML Vial SUBCUT SCH ×3 (05:07→20:21)
[2018-05-20] MEDS: Sodium Chloride 0.9% 1,000 ML IV SCH (07:39)
[2018-05-20] MEDS ORDERED: Magnesium Sulfate/Water 2 GM in Premix Bag 1 BAG IV ONE (07:43)
[2018-05-20] MEDS: Rosuvastatin 10 MG Tab PO SCH (08:11)
[2018-05-20] MEDS: Multivitamins,Therapeutic Tab PO SCH (08:11)
[2018-05-20] MEDS: Isosorbide Mononitrate 30 MG Tab.ER PO SCH (09:00)
[2018-05-20] MEDS: amLODIPine 5 MG Tab PO SCH (09:00)
[2018-05-20] MEDS ORDERED: Cephalexin 500 MG Cap PO SCH (09:00)
[2018-05-20] MEDS: Atenolol 50 MG Tab PO SCH (09:00)
--- NOTE | 2018-05-20 10:11 | PCM.PN ---
- General Info Date of Service: 05/20/18 Admission Dx/Problem (Free Text): Admission Diagnosis/Problem Admission Diagnosis/Problem Urinary tract infection Subjective Update: In to see Jennifer. She is resting comfortably in chair at bedside. She is alert and oriented x 3 today. She states she feels the "same as I did yesterday". She denies any dysuria, burning, or frequency. She also denies chest pain, dyspnea. She does endorse diarrhea; cdiff evaluated yesterday and was negative. PCP records indicate patient has chronic diarrhea. Functional Status: Reports: Pain Controlled, Tolerating Diet, Ambulating, Urinating - Review of Systems General: Reports: No Symptoms. Denies: Fever, Weakness, Chills HEENT: Reports: No Symptoms. Denies: Sinus Congestion, Sore Throat Pulmonary: Reports: No Symptoms. Denies: Shortness of Breath, Cough Cardiovascular: Reports: No Symptoms. Denies: Chest Pain, Edema Gastrointestinal: Reports: Diarrhea (chronic). Denies: Abdominal Pain, Constipation, Nausea, Vomiting Genitourinary: Reports: No Symptoms. Denies: Dysuria, Frequency, Burning Musculoskeletal: Reports: No Symptoms. Denies: Joint Pain Skin: Reports: No Symptoms. Denies: Cyanosis Neurological: Reports: No Symptoms. Denies: Confusion, Dizziness, Headache Psychiatric: Reports: No Symptoms. Denies: Confusion, Depression, Anxiety - Patient Data Vitals - Most Recent: Last Vital Signs Temp 97.9 F 05/20/18 07:26 Pulse 51 L 05/20/18 09:00 Resp 18 05/20/18 07:26 BP 134/58 L 05/20/18 09:00 Pulse Ox 94 L 05/20/18 07:26 Weight - Most Recent: 149 lb 8 oz I&O - Last 24 Hours: Intake & Output 05/19/18 05/20/18 05/20/18 22:59 06:59 14:59 Intake Total 1380 1397 Output Total 1100 Balance 1380 297 Lab Results Last 24 Hours: Laboratory Results - last 24 hr 05/19/18 05/19/18 05/20/18 Range/Units 06:37 09:05 06:00 WBC 5.55 (3.98-10.04) K/mm3 RBC 3.37 L (3.98-5.22) M/mm3 Hgb 9.8 L (11.2-15.7) gm/L Hct 31.4 L (34.1-44.9) % MCV 93.2 (79.4-94.8) fl MCH 29.1 (25.6-32.2) pg MCHC 31.2 L (32.2-35.5) g/dl RDW Std Deviation 49.4 H (36.4-46.3) fL Plt Count 117 L (182-369) K/mm3 MPV 11.8 (9.4-12.3) fl Neut % (Auto) 41.5 (34.0-71.1) % Lymph % (Auto) 43.2 (19.3-51.7) % [place] % (Auto) 8.1 (4.7-12.5) % Eos % (Auto) 6.8 H (0.7-5.8) Baso % (Auto) 0.4 (0.1-1.2) % Neut # (Auto) 2.30 (1.56-6.13) K/mm3 Lymph # (Auto) 2.40 (1.18-3.74) K/mm3 [place] # (Auto) 0.45 H (0.24-0.36) K/mm3 Eos # (Auto) 0.38 H (0.04-0.36) K/mm3 Baso # (Auto) 0.02 (0.01-0.08) K/mm3 Sodium (136-145) mEq/L Potassium (3.5-5.1) mEq/L Chloride (98-107) mEq/L Carbon Dioxide (21-32) mEq/L Anion Gap (5-15) BUN (7-18) mg/dL Creatinine (0.55-1.02) mg/dL Est Cr Clr Drug Dosing mL/min Estimated GFR (MDRD) (>60) mL/min BUN/Creatinine Ratio (14-18) Glucose (83-115) mg/dL Lactic Acid (0.4-2.0) mmol/L Calcium (8.5-10.1) mg/dL Magnesium (1.8-2.4) mg/dl C-Reactive Protein (<1.0) mg/dL Triglycerides (<150) mg/dL Cholesterol (<200) mg/dL LDL Cholesterol Direct (<100) mg/dL HDL Cholesterol (40-59) mg/dL TSH 3rd Generation 3.175 (0.358-3.74) uIU/mL C.difficile 027-[id number] Presumptive negative C. difficile Tox (PCR) Negative 05/20/18 05/20/18 05/20/18 Range/Units 06:00 06:00 06:00 WBC (3.98-10.04) K/mm3 RBC (3.98-5.22) M/mm3 Hgb (11.2-15.7) gm/L Hct (34.1-44.9) % MCV (79.4-94.8) fl MCH (25.6-32.2) pg MCHC (32.2-35.5) g/dl RDW Std Deviation (36.4-46.3) fL Plt Count (182-369) K/mm3 MPV (9.4-12.3) fl Neut % (Auto) (34.0-71.1) % Lymph % (Auto) (19.3-51.7) % [place] % (Auto) (4.7-12.5) % Eos % (Auto) (0.7-5.8) Baso % (Auto) (0.1-1.2) % Neut # (Auto) (1.56-6.13) K/mm3 Lymph # (Auto) (1.18-3.74) K/mm3 [place] # (Auto) (0.24-0.36) K/mm3 Eos # (Auto) (0.04-0.36) K/mm3 Baso # (Auto) (0.01-0.08) K/mm3 Sodium 140 (136-145) mEq/L Potassium 4.1 (3.5-5.1) mEq/L Chloride 111 H (98-107) mEq/L Carbon Dioxide 17 L (21-32) mEq/L Anion Gap 16.1 H (5-15) BUN 45 H (7-18) mg/dL Creatinine 2.6 H (0.55-1.02) mg/dL Est Cr Clr Drug Dosing 14.10 mL/min Estimated GFR (MDRD) 18 (>60) mL/min BUN/Creatinine Ratio 17.3 (14-18) Glucose 98 (83-115) mg/dL Lactic Acid 0.4 (0.4-2.0) mmol/L Calcium 7.8 L (8.5-10.1) mg/dL Magnesium 1.7 L (1.8-2.4) mg/dl C-Reactive Protein 7.5 H* (<1.0) mg/dL Triglycerides 111 (<150) mg/dL Cholesterol 118 (<200) mg/dL LDL Cholesterol Direct 64 (<100) mg/dL HDL Cholesterol 35.0 L (40-59) mg/dL TSH 3rd Generation (0.358-3.74) uIU/mL C.difficile 027-NAP1-B1 C. difficile Tox (PCR) Luis Results Last 24 Hours: Microbiology 05/17/18 22:40 Aerobic Blood Culture - Preliminary Blood - Venous NO GROWTH AFTER 2 DAYS Anaerobic Blood Culture - Preliminary NO GROWTH AFTER 2 DAYS 05/17/18 22:35 Aerobic Blood Culture - Preliminary Blood - Venous - Lab Draw NO GROWTH AFTER 2 DAYS Anaerobic Blood Culture - Preliminary NO GROWTH AFTER 2 DAYS 05/17/18 21:00 Urine Culture - Final Urine, Quick Cath (In-Out) Escherichia Coli Med Orders - Current: Current Medications Acetaminophen (Tylenol) 650 mg PO Q6H PRN PRN Reason: Pain/Fever Last Admin: 05/18/18 09:24 Dose: 650 mg Amlodipine Besylate (Norvasc) 5 mg PO DAILY [facility] Last Admin: 05/20/18 09:00 Dose: 5 mg Aspirin (Halfprin) 81 mg PO BEDTIME [facility] Last Admin: 05/19/18 20:51 Dose: 81 mg Atenolol (Tenormin) 100 mg PO DAILY [facility] Last Admin: 05/20/18 09:00 Dose: Not Given Flunisolide (Nasalide Nasal [place]) 0 ml NASBOTH BID [facility] Last Admin: 05/20/18 08:12 Dose: 2 sprays Guaifenesin/Phenylephrine HCl (Robitussin Dm) 10 ml PO Q6H PRN PRN Reason: Cough Last Admin: 05/18/18 18:08 Dose: 10 ml Heparin Sodium (Porcine) (Heparin Sodium) 5,000 units SUBCUT Q8H [facility] Last Admin: 05/20/18 05:07 Dose: 5,000 units Sodium Chloride (Normal Saline) 1,000 mls @ 100 mls/hr IV ASDIRECTED [facility] Last Admin: 05/20/18 07:39 Dose: 100 mls/hr Ceftriaxone Sodium 2 gm/ (Dextrose/Water) 100 mls @ 100 mls/hr IV Q24H [facility] Last Admin: 05/20/18 08:11 Dose: 100 mls/hr Isosorbide Mononitrate (Imdur) 30 mg PO DAILY [facility] Last Admin: 05/20/18 09:00 Dose: Not Given Levothyroxine Sodium (Synthroid) 100 mcg PO ACBREAKFAST [facility] Last Admin: 05/20/18 05:06 Dose: 100 mcg Loratadine (Claritin) 10 mg PO BEDTIME [facility] Last Admin: 05/19/18 20:51 Dose: 10 mg Multivitamins (Thera) 1 each PO DAILY [facility] Last Admin: 05/20/18 08:11 Dose: 1 each Nitroglycerin (Nitrostat) 0.4 mg SL ASDIRECTED PRN PRN Reason: chest pain Ondansetron HCl (Zofran) 4 mg IVPUSH Q8H PRN PRN Reason: Nausea Rosuvastatin Calcium (Crestor) 10 mg PO DAILY [facility] Last Admin: 05/20/18 08:11 Dose: 10 mg Temazepam (Restoril) 7.5 mg PO BEDTIME PRN PRN Reason: Sleep Discontinued Medications Sodium Chloride (Normal Saline) Confirm Administered Dose 100 mls @ as directed .ROUTE .STK-MED ONE Stop: 05/18/18 00:25 Last Admin: 05/18/18 01:16 Dose: Not Given Ceftriaxone Sodium 2 gm/ (Sodium Chloride) 100 mls @ 100 mls/hr IV Q24H [facility] Last Admin: 05/18/18 01:16 Dose: 100 mls/hr Magnesium Sulfate 2 gm/ Premix 50 mls @ 25 mls/hr IV ONETIME ONE Stop: 05/20/18 09:42 Last Admin: 05/20/18 09:00 Dose: 25 mls/hr Non-Formulary Medication (Melatonin [Melatonin]) 10 mg PO BEDTIME [facility] Trimethoprim/Sulfamethoxazole (Septra Ds) 1 tab PO ONETIME ONE Stop: 05/17/18 22:43 Last Admin: 05/17/18 23:05 Dose: 1 tab - Exam Quality Assessment: DVT Prophylaxis General: Alert, Oriented, Cooperative, No Acute Distress HEENT: Pupils Equal, Pupils Reactive, EOMI, Mucous Membr. Moist/[place] Neck: Supple. No: Lymphadenopathy Lungs: Clear to Auscultation, Normal Respiratory Effort Cardiovascular: Regular Rate, Regular Rhythm, Murmurs (systolic grade I/ ) GI/Abdominal Exam: Normal Bowel Sounds, Soft, Non-Tender, No Distention (Female) Exam: Deferred Back Exam: Normal Inspection, Full Range of Motion Extremities: Normal Inspection, Normal Range of Motion, Non-Tender, No Pedal Edema, Normal Capillary Refill Peripheral Pulses: 1+: Posterior Tibial (L), Posterior Tibial (R), Dorsalis Pedis (L), Dorsalis Pedis (R), 2+: Radial (L), Radial (R) Skin: Warm, Dry, Intact Neurological: No New Focal Deficit, Strength Equal Bilateral, Cranial Nerves Intact (grossly ) Psy/Mental Status: Alert, Normal Affect, Normal Mood - Problem List Review Problem List Initiated/Reviewed/Updated: Yes - My Orders Last 24 Hours: My Active Orders 05/19/18 10:53 Consult to Physical Therapy [PT Evaluation and Treatment] [CONS] Routine 05/19/18 10:54 Consult to Occupational Therapy [OT Evaluation and Treatment] [CONS] Routine C DIFFICILE BY PCR W/NAP1 [MOLEC] Stat 05/19/18 11:37 SCD [Sequential Compression Device] [OM.PC] Routine 05/19/18 Lunch Heart Healthy Diet [DIET] - Plan Plan:: Impression: Acute Acute mental status change, improved - likely 2/2 UTI - TSH 3.175 - [facility] staff report patient is normally not confused --> PCP records indicate memory difficulties at baseline - CM/SW consult Acute UTI - Risk factors: Hx of urinary incontinence and recurrent UTIs and records indicating chronic diarrhea - Received Bactrim in ED --> changed to Rocephin 2 gm IV q 24 hr; will d/c Rocephin and start Keflex 500 mg PO q12h on 05/21/18 x 5 days - Urine culture: E coli - BC after 2 days show no growth - CRP 7.5, was 14.2 - Lactic acid 0.4, was 0.8 - Afebrile - IVF NS at 100 ml/hr --> will decrease to 50 ml/hr as she is having good UOP ; encourage po fluid intake - Outpatient Urology appointment was scheduled for today, this has been rescheduled Acute drop in Hgb - Hgb 9.8 today, 11.5 yesterday - She is not symptomatic - Likely 2/2 volume status - Will order FOBT x 1 Hypomagnesemia - 1.7 today, was 1.9 - Will receive Mg sulfate 2 gm po x 1 dose - Monitor Weakness - Likely 2/2 UTI - PT/OT consult Diarrhea - Patient reports diarrhea for past month - Likely contributing to UTI - Cdiff negative - PCP records indicate chronic diarrhea with recommendation for patient to take Questran but this is not on med rec Acute renal failure, prerenal - Hx of CKD, stage V - BUN, Cr, and eGFR stable per records - PCP records indicate patient follows with Dr. Castellanos - Monitor Elevated D Dimer - 2.7 in ED - PE unlikely --> CXR negative and she is not having any dyspnea - Likely from renal disease Resolved Leukocytosis - WBC 10.3 in ED, now 6.77 - Likely 2/2 current medical state Upper respiratory symptoms - New onset - Influenza panel negative - Respiratory Chronic CAD with hx of NM and CABG CVA HLD --> Lipid panel: Total 118, LDL 64, HDL 35 --> she is on atorvastatin at [facility] and will receive rosuvastatin during admit. Noted myalgias reported with statin, will recommend CoQ10 at D/C HTN SUKHWINDER on CPAP Former tobacco COPD Hypothyroidism Plan: Decrease IVF to 50 ml/hr Check FOBT with Hgb decline D/C Rocephin and initiate Keflex 500 mg po q 12 hr to begin tomorrow, 05/21/18 Routine AM labs Resume Home meds Heart Healthy diet DVT prophylaxis: SCDs and Heparin CM/SW --> plan for discharge tomorrow, 05/21/18, to previous residence at [facility] Continue PT/OT Code Status: DNR/DNI PCP: Dr. Zenon Lew
[2018-05-20] MEDS ORDERED: Sodium Chloride 0.9% 1,000 ML IV SCH (11:30)
[2018-05-20] MEDS: Loratadine 10 MG Tab PO SCH (20:22)
[2018-05-20] MEDS: Aspirin 81 MG Tab.EC PO SCH (20:22)
[2018-05-21] MEDS: Heparin Sodium 5,000 Units/ML Vial SUBCUT SCH ×2 (04:06→12:03)
[2018-05-21] MEDS: Levothyroxine 100 MCG Tab PO SCH (05:06)
[2018-05-21] MEDS ORDERED: Cephalexin 500 MG Cap PO SCH (09:00)
[2018-05-21] MEDS: Isosorbide Mononitrate 30 MG Tab.ER PO SCH (09:53)
[2018-05-21] MEDS: amLODIPine 5 MG Tab PO SCH (09:54)
[2018-05-21] MEDS: Rosuvastatin 10 MG Tab PO SCH (09:58)
[2018-05-21] MEDS: Multivitamins,Therapeutic Tab PO SCH (09:58)
[2018-05-21] MEDS: Atenolol 50 MG Tab PO SCH (11:01)
--- NOTE | 2018-05-21 13:06 | PCM.DCSUM1 ---
Discharge Summary - Hospital Course HPI Initial Comments: 78 year old [facility] resident with AMS, developed an elevated temperature, 101.8F in the ED. Ajay AL reported complaint of confusion, fever, and urinary incontinence. No known sick contacts; a UA suggest AUTI.. She received Bactrim DS in the ED. PE and labs support dehydration. The patient has CKD IV- V, there is acute renal failure; D dimer is elevated in that setting therefore unlikely related to a PE. She will be admitted as an observation with telemetry. The patient has a code status of DNR/DNI. The patient's PCP is Dr. Janessa Lew. Diagnosis: Stroke: No - Discharge Data Discharge Date: 05/21/18 Discharge Disposition: Home, Self-Care 01 Condition: Good - Patient Summary/Data Operative Procedure(s) Performed: None Complications: None Consults: Consultations 05/19/18 10:53 Consult to Physical Therapy [PT Evaluation and Treatment] [CONS] Routine 05/19/18 10:54 Consult to Occupational Therapy [OT Evaluation and Treatment] [CONS] Routine Labs Pending at D/C: None Recommended Follow-up Testing/Procedures: Outpatient 2D Echo PCP in 1 week Planned Operative Procedure(s) after DC: None Hospital Course: Impression: Acute Acute mental status change, improved - likely 2/2 UTI - TSH 3.175 - [facility] staff report patient is normally not confused --> PCP records indicate memory difficulties at baseline - CM/SW consult Acute UTI - Risk factors: Hx of urinary incontinence and recurrent UTIs and records indicating chronic diarrhea - Received Bactrim in ED --> changed to Rocephin 2 gm IV q 24 hr; will d/c Rocephin and start Keflex 500 mg PO q12h on 05/21/18 x 5 days - Urine culture: E coli - BC after 2 days show no growth - CRP improved - Lactic acid 0.4, was 0.8 - Afebrile - IVF NS at 100 ml/hr --> will decrease to 50 ml/hr as she is having good UOP ; encourage po fluid intake - Outpatient Urology appointment was rescheduled Weakness - Likely 2/2 UTI - PT/OT consult Bradycardia - HR has been in 50s - Will decrease atenolol from 100 mg to 50 mg po daily - Will order 24 hour Holter Monitor at D/C - Recommend outpatient 2D Echo Hypertension - This morning BP was elevated --> amlodipine held per nursing - Will adjust amlodipine from q AM to q HS - Restart Lasix at D/C Diarrhea - Patient reports diarrhea for past month - Likely contributing to UTI - Cdiff negative - PCP records indicate chronic diarrhea with recommendation for patient to take Questran but this is not on med rec Acute renal failure, prerenal - Hx of CKD, stage V - BUN, Cr, and eGFR stable per records - PCP records indicate patient follows with Dr. Castellanos - Monitor Elevated D Dimer - 2.7 in ED - PE unlikely --> CXR negative and she is not having any dyspnea - Likely from renal disease Resolved Leukocytosis - WBC 10.3 in ED, now 6.77 - Likely 2/2 current medical state Upper respiratory symptoms - New onset - Influenza panel negative - Respiratory panel --> parainfluenza virus positive; supportive care Hypomagnesemia - 1.7 today, was 1.9 - Will receive Mg sulfate 2 gm IV x 1 dose - Monitor Acute drop in Hgb - Hgb 10.1 today, yesterday 9.8 - She is not symptomatic - Likely 2/2 volume status - FOBT x 1 negative Chronic CAD with hx of PA and CABG CVA HLD --> Lipid panel: Total 118, LDL 64, HDL 35 --> she is on atorvastatin at [facility] and will receive rosuvastatin during admit. Noted myalgias reported with statin, will recommend CoQ10 at D/C HTN SUKHWINDER on CPAP Former tobacco COPD Hypothyroidism Plan: Decrease IVF to 50 ml/hr Check FOBT with Hgb decline D/C Rocephin and initiate Keflex 500 mg po q 12 hr to begin today, 05/21/18 Routine AM labs Resume Home meds Heart Healthy diet DVT prophylaxis: SCDs and Heparin CM/SW --> plan for discharge today, 05/21/18, to previous residence at [facility] Continue PT/OT Code Status: DNR/DNI PCP: Dr. Janessa Lew [place] Hospital Course: Jennifer was admitted for AMS and UTI. She is from [facility]. She was given Bactrim in ED; this was changed to Rocephin 2 gm IV q 24 hr. Urine culture showed E.coli. She will receive Keflex 500 mg po q 12 hr x 5 days at D/C. BC showed no growth after 2 days. Patient also reported chronic diarrhea and this is likely contributing to her recurrent UTIs. Cdiff testing was performed and was negative. With resident's AMS, TSH was ordered and normal at 3.175. During patient's admission, she was often bradycardic. Atenolol was decreased from 100 mg daily to 50 mg daily. Holter monitor for 24 hours ordered at discharge. Recommendation for outpatient 2D echo. Patient was also hypertensive on day of discharge; it was discovered that her amlodipine was held that morning. Decision was made to change amlodipine from q AM to q HS. Patient has history of CKD V and follows with Dr. Castellanos; during admission her renal function was at baseline. Patient was exhibiting upper respiratory symptoms therefore respiratory viral panel was ordered and was parainfluenza positive. Supportive care was provided. Labs showed leukocytosis and hypomagnesemia. Leukocytosis resolved. She received Mg sulfate 2 gm IV x 1. Her Hgb also declined during admission; she was receiving IVF of NS at 100 ml/hr and the decline in Hgb was thought to be volume related, however, FOBT ordered and was negative. Lipids were also evaluated and showed total cholesterol 118, LDL 64, HDL 35. She is on atorvastatin at [facility] and received rosuvastatin during admit. D-dimer elevated in ED; CXR negative and was thought to be likely 2/2 CKD V. New/ updated medications at discharge: amlodipine 5 mg po q HS, atenolol 50 mg po daily, Keflex 500 mg q 12 hr, Robitussin DM 10 ml po q 6 hr prn, Tylenol 650 mg q 6 hr prn pain. She is to see her PCP in 1 week. Patient is stable and ready for discharge back to [facility] today. Patient is agreeable to this plan. - Patient Instructions Diet: Heart Healthy Diet, Usual Diet as Tolerated Activity: As Tolerated Driving: Do Not Drive Showering/Bathing: May Shower Notify Provider of: Fever, Increased Pain, Swelling and Redness - Discharge Plan Prescriptions/Med Rec: Acetaminophen [Tylenol] 650 mg PO Q6H PRN #100 tablet PRN Reason: Pain/Fever amLODIPine Besylate [Amlodipine Besylate] 5 mg PO BEDTIME #30 tablet Atenolol [Tenormin] 50 mg PO DAILY #30 tablet Cephalexin [Keflex] 500 mg PO Q12H #10 cap Dextromethorphan/guaiFENesin [Robitussin DM] 10 ml PO Q6H PRN #120 cup PRN Reason: Cough Home Medications: Home Meds Aspirin [Lo-Dose Aspirin EC] 81 mg PO BEDTIME 05/17/18 [History] Fluticasone Furoate [Flonase Sensimist] 1 spray NASBOTH BID 05/17/18 [History] Furosemide [Lasix] 20 mg PO DAILY 05/17/18 [History] Isosorbide Mononitrate [Imdur] 30 mg PO DAILY 05/17/18 [History] Levothyroxine [Synthroid] 100 mcg PO DAILY 05/17/18 [History] Loratadine [Claritin] 10 mg PO BEDTIME 05/17/18 [History] Melatonin 10 mg PO BEDTIME 05/17/18 [History] Multivit-Min/Iron Fum/Folic AC [Hqdwy-Hjnqcpa-Jgnvazvm Tablet] 1 tab PO DAILY [History] Nitroglycerin [Nitrostat] 0.4 mg SL ASDIRECTED PRN 05/17/18 [History] Ranitidine HCl [Zantac 75] 1 tab PO BID 05/17/18 [History] atorvaSTATin [Lipitor] 40 mg PO BEDTIME 05/17/18 [History] Loperamide [Imodium AD] 2 - 4 caplet PO ASDIRECTED PRN 05/18/18 [History] Acetaminophen [Tylenol] 650 mg PO Q6H PRN #100 tablet 05/21/18 [Rx] Atenolol [Tenormin] 50 mg PO DAILY #30 tablet 05/21/18 [Rx] Cephalexin [Keflex] 500 mg PO Q12H #10 cap 05/21/18 [Rx] Dextromethorphan/guaiFENesin [Robitussin DM] 10 ml PO Q6H PRN #120 cup 05/21/18 [Rx] amLODIPine Besylate [Amlodipine Besylate] 5 mg PO BEDTIME #30 tablet 05/21/18 [ Rx] Patient Handouts: Urinary Tract Infection, Adult, [id number], Chronic Kidney Disease, Adult, [id number] Referrals: Janessa Lew MD [Primary Care Provider] - - Discharge Summary/Plan Comment DC Time >30 min.: Yes (45) - General Info Admission Dx/Problem (Free Text: Admission Diagnosis/Problem Admission Diagnosis/Problem Urinary tract infection Subjective Update: In to see Jennifer. She is resting comfortably in chair at bedside. She is alert to self but did not want to answer the question of where she is currently nor did she know what year it is. She states she is feeling better. She denies any dysuria, burning, or frequency. She also denies chest pain, dyspnea. She is looking forward to returning to [facility] today. Functional Status: Reports: Pain Controlled, Tolerating Diet, Ambulating, Urinating - Review of Systems General: Reports: No Symptoms. Denies: Fever, Weakness HEENT: Reports: No Symptoms. Denies: Sinus Congestion, Sore Throat Pulmonary: Reports: No Symptoms. Denies: Shortness of Breath, Cough Cardiovascular: Reports: No Symptoms. Denies: Chest Pain, Palpitations, Edema Gastrointestinal: Reports: No Symptoms. Denies: Abdominal Pain, Diarrhea, Nausea, Vomiting Genitourinary: Reports: No Symptoms. Denies: Dysuria, Frequency, Burning Musculoskeletal: Reports: No Symptoms. Denies: Joint Pain Skin: Reports: No Symptoms, Cyanosis Neurological: Reports: No Symptoms. Denies: Confusion, Dizziness, Headache Psychiatric: Reports: No Symptoms. Denies: Confusion, Depression, Anxiety - Patient Data Vitals - Most Recent: Last Vital Signs Temp 98.8 F 05/21/18 12:02 Pulse 50 L 05/21/18 12:02 Resp 18 05/21/18 12:02 BP 133/61 05/21/18 12:02 Pulse Ox 97 05/21/18 12:02 Weight - Most Recent: 150 lb 3.2 oz I&O - Last 24 hours: Intake & Output 05/20/18 05/21/18 05/21/18 22:59 06:59 14:59 Intake Total 2034 1068 Output Total 1400 850 Balance 634 218 Lab Results - Last 24 hrs: Laboratory Results - last 24 hr 05/21/18 05/21/18 05/21/18 Range/Units 05:42 05:43 05:43 WBC 5.66 (3.98-10.04) K/mm3 RBC 3.45 L (3.98-5.22) M/mm3 Hgb 10.1 L (11.2-15.7) gm/L Hct 31.8 L (34.1-44.9) % MCV 92.2 (79.4-94.8) fl MCH 29.3 (25.6-32.2) pg MCHC 31.8 L (32.2-35.5) g/dl RDW Std Deviation 49.3 H (36.4-46.3) fL Plt Count 121 L (182-369) K/mm3 MPV 11.4 (9.4-12.3) fl Neut % (Auto) 41.4 (34.0-71.1) % Lymph % (Auto) 44.0 (19.3-51.7) % [place] % (Auto) 6.7 (4.7-12.5) % Eos % (Auto) 7.4 H (0.7-5.8) Baso % (Auto) 0.5 (0.1-1.2) % Neut # (Auto) 2.34 (1.56-6.13) K/mm3 Lymph # (Auto) 2.49 (1.18-3.74) K/mm3 [place] # (Auto) 0.38 H (0.24-0.36) K/mm3 Eos # (Auto) 0.42 H (0.04-0.36) K/mm3 Baso # (Auto) 0.03 (0.01-0.08) K/mm3 Manual Slide Review Normal smear Sodium 136 (136-145) mEq/L Potassium 3.5 (3.5-5.1) mEq/L Chloride 109 H (98-107) mEq/L Carbon Dioxide 18 L (21-32) mEq/L Anion Gap 12.5 (5-15) BUN 37 H (7-18) mg/dL Creatinine 2.2 H (0.55-1.02) mg/dL Est Cr Clr Drug Dosing 16.67 mL/min Estimated GFR (MDRD) 22 (>60) mL/min BUN/Creatinine Ratio 16.8 (14-18) Glucose 97 (83-115) mg/dL Lactic Acid 0.7 (0.4-2.0) mmol/L Calcium 8.0 L (8.5-10.1) mg/dL Magnesium 2.1 (1.8-2.4) mg/dl C-Reactive Protein 4.4 H* (<1.0) mg/dL YUSRA Results - Last 24 hrs: Microbiology 05/20/18 05:00 Stool Occult Blood (YUSRA) - Final Stool / Feces NEGATIVE OCCULT BLOOD 05/19/18 18:10 Respiratory Virus Panel (PCR) - Final Nasopharyngeal Swab 05/17/18 22:40 Aerobic Blood Culture - Preliminary Blood - Venous NO GROWTH AFTER 3 DAYS Anaerobic Blood Culture - Preliminary NO GROWTH AFTER 3 DAYS 05/17/18 22:35 Aerobic Blood Culture - Preliminary Blood - Venous - Lab Draw NO GROWTH AFTER 3 DAYS Anaerobic Blood Culture - Preliminary NO GROWTH AFTER 3 DAYS Med Orders - Current: Current Medications Acetaminophen (Tylenol) 650 mg PO Q6H PRN PRN Reason: Pain/Fever Last Admin: 05/18/18 09:24 Dose: 650 mg Amlodipine Besylate (Norvasc) 5 mg PO DAILY [facility] Last Admin: 05/21/18 09:54 Dose: 5 mg Aspirin (Halfprin) 81 mg PO BEDTIME [facility] Last Admin: 05/20/18 20:22 Dose: 81 mg Atenolol (Tenormin) 100 mg PO DAILY [facility] Last Admin: 05/21/18 11:01 Dose: 50 mg Cephalexin (Keflex) 500 mg PO Q12H [facility] Last Admin: 05/21/18 09:58 Dose: 500 mg Flunisolide (Nasalide Nasal [place]) 0 ml NASBOTH BID [facility] Last Admin: 05/21/18 09:58 Dose: 1 sprays Guaifenesin/Phenylephrine HCl (Robitussin Dm) 10 ml PO Q6H PRN PRN Reason: Cough Last Admin: 05/18/18 18:08 Dose: 10 ml Heparin Sodium (Porcine) (Heparin Sodium) 5,000 units SUBCUT Q8H [facility] Last Admin: 05/21/18 12:03 Dose: 5,000 units Sodium Chloride (Normal Saline) 1,000 mls @ 50 mls/hr IV ASDIRECTED [facility] Last Admin: 05/20/18 23:12 Dose: 50 mls/hr Isosorbide Mononitrate (Imdur) 30 mg PO DAILY [facility] Last Admin: 05/21/18 09:53 Dose: 30 mg Levothyroxine Sodium (Synthroid) 100 mcg PO ACBREAKFAST [facility] Last Admin: 05/21/18 05:06 Dose: 100 mcg Loratadine (Claritin) 10 mg PO BEDTIME [facility] Last Admin: 05/20/18 20:22 Dose: 10 mg Multivitamins (Thera) 1 each PO DAILY [facility] Last Admin: 05/21/18 09:58 Dose: 1 each Nitroglycerin (Nitrostat) 0.4 mg SL ASDIRECTED PRN PRN Reason: chest pain Ondansetron HCl (Zofran) 4 mg IVPUSH Q8H PRN PRN Reason: Nausea Rosuvastatin Calcium (Crestor) 10 mg PO DAILY [facility] Last Admin: 05/21/18 09:58 Dose: 10 mg Temazepam (Restoril) 7.5 mg PO BEDTIME PRN PRN Reason: Sleep Last Admin: 05/21/18 00:05 Dose: 7.5 mg Discontinued Medications Cephalexin (Keflex) 500 mg PO Q12H [facility] Last Admin: 05/20/18 19:37 Dose: Not Given Sodium Chloride (Normal Saline) Confirm Administered Dose 100 mls @ as directed .ROUTE .STK-MED ONE Stop: 05/18/18 00:25 Last Admin: 05/18/18 01:16 Dose: Not Given Sodium Chloride (Normal Saline) 1,000 mls @ 100 mls/hr IV ASDIRECTED [facility] Last Admin: 05/20/18 07:39 Dose: 100 mls/hr Ceftriaxone Sodium 2 gm/ (Sodium Chloride) 100 mls @ 100 mls/hr IV Q24H [facility] Last Admin: 05/18/18 01:16 Dose: 100 mls/hr Ceftriaxone Sodium 2 gm/ (Dextrose/Water) 100 mls @ 100 mls/hr IV Q24H [facility] Stop: 05/20/18 09:01 Last Admin: 05/20/18 08:11 Dose: 100 mls/hr Magnesium Sulfate 2 gm/ Premix 50 mls @ 25 mls/hr IV ONETIME ONE Stop: 05/20/18 09:42 Last Admin: 05/20/18 09:00 Dose: 25 mls/hr Non-Formulary Medication (Melatonin [Melatonin]) 10 mg PO BEDTIME [facility] Trimethoprim/Sulfamethoxazole (Septra Ds) 1 tab PO ONETIME ONE Stop: 05/17/18 22:43 Last Admin: 05/17/18 23:05 Dose: 1 tab - Exam Quality Assessment: Reports: DVT Prophylaxis. Denies: Supplemental Oxygen General: Reports: Alert, Cooperative, No Acute Distress, Other (She is not oriented to place or time) HEENT: Reports: Pupils Equal, Pupils Reactive, EOMI, Mucous Membr. Moist/[place] Neck: Reports: Supple. Denies: Lymphadenopathy Lungs: Reports: Clear to Auscultation, Normal Respiratory Effort Cardiovascular: Reports: Regular Rate, Regular Rhythm, No Murmurs GI/Abdominal Exam: Normal Bowel Sounds, Soft, Non-Tender, No Distention (Female) Exam: Deferred Rectal (Female) Exam: Deferred Back Exam: Reports: Normal Inspection, Full Range of Motion Extremities: Normal Inspection, Normal Range of Motion, Non-Tender, No Pedal Edema, Normal Capillary Refill Skin: Reports: Warm, Dry, Intact Neurological: Reports: No New Focal Deficit, Strength Equal Bilateral, Cranial Nerves Intact (grossly) Psy/Mental Status: Reports: Alert, Normal Affect, Normal Mood
== END 2018-05-21 15:35 | disposition home or self-care (01) | DRG 690 ==
LOC: JD.ED 21:42 → JD.MS 23:58
PROVIDERS: ADMIT Internal Medicine Cardiovascular Disease; ATTEND Internal Medicine Cardiovascular Disease
DX: N39.0 Urinary tract infection, site not specified (principal); I12.0 Hypertensive chronic kidney disease with stage 5 chronic kidney disease or end stage renal disease; N18.5 Chronic kidney disease, stage 5; N17.9 Acute kidney failure, unspecified; E78.00 Pure hypercholesterolemia, unspecified; E86.0 Dehydration; Z66 Do not resuscitate; E83.42 Hypomagnesemia; B96.20 Unspecified Escherichia coli [E. coli] as the cause of diseases classified elsewhere; E03.9 Hypothyroidism, unspecified; G47.33 Obstructive sleep apnea (adult) (pediatric); J44.9 Chronic obstructive pulmonary disease, unspecified; I25.10 Atherosclerotic heart disease of native coronary artery without angina pectoris; R00.1 Bradycardia, unspecified; E78.5 Hyperlipidemia, unspecified; K52.9 Noninfective gastroenteritis and colitis, unspecified; I25.2 Old myocardial infarction; Z88.0 Allergy status to penicillin; Z88.8 Allergy status to other drugs, medicaments and biological substances; Z95.1 Presence of aortocoronary bypass graft; Z86.73 Personal history of transient ischemic attack (TIA), and cerebral infarction without residual deficits; Z87.891 Personal history of nicotine dependence; Z87.440 Personal history of urinary (tract) infections
CPT/HCPCS: 36415; 71046; 80053; 81001; 83605; 83735; 84484; 85007; 85027; 85379; 85610; 85730; 87040 ×2; 87086; 87088; 87186; 87804 ×2; 93005; 99285; A9270; 80048; 80061; 82272; 84443; 85025; 86140; 87486; 87493; 87581; 87633; 87641; 87798; 97161-GP; 97165-GO; 97530-GO; 99283; J0696; J1644; J3475; J7030; J7040; J7060

== ENCOUNTER 2021-09-24 07:50 | Emergency (ER) | payer MEDICARE, MEDICAID ==
--- NOTE | 2021-09-24 08:22 | EDM.PDOC ---
ED HPI GENERAL MEDICAL PROBLEM - General Chief Complaint: General Stated Complaint: FALL Time Seen by Provider: 09/24/21 08:08 Source of Information: Reports: Patient, [facility] Records, Other (Preschool Director) History Limitations: Reports: No Limitations - History of Present Illness INITIAL COMMENTS - FREE TEXT/NARRATIVE: 81-year-old female presents to the ED after suffering a ground-level fall earlier this morning in her room at the [facility]. I believe she resides at [facility]. She states she lost her balance and fell primarily injuring her right dorsal hand. She denies hitting her head or losing consciousness. Apparently she was on her way to the bathroom from her bed when she went down to the floor. This happened around 0400 hrs. this morning. She believes her tetanus diphtheria and pertussis vaccine is up-to-date. She is also had her booster Covid shot and she believes her influenza shot as well. Onset: Today, Sudden Onset Date: 09/24/21 Onset Time: 04:00 Duration: Hour(s):, Constant Location: Reports: Upper Extremity, Right (Skin skin tear dorsal right hand and wrist) Quality: Reports: Burning Severity: Mild Improves with: Reports: Rest Worsens with: Reports: Movement Context: Reports: Trauma (Secondary to a fall this morning in the [facility].). Denies: Activity, Exercise, Lifting, Sick Contact Associated Symptoms: Reports: Malaise, Shortness of Breath, Weakness, Other (Does use a cane to aid her gait.). Denies: Confusion, Chest Pain, Cough, cough w sputum, Diaphoresis, Fever/Chills, Headaches, Loss of Appetite, Nausea/Vomiting, Rash, Seizure, Syncope Treatments LITIGATION SPECIALIST: Reports: Other (see below) - Related Data Allergies Allergy/AdvReac Type Severity Reaction Status Date / Time egg Allergy Severe Cannot Verified 09/24/21 08:10 Remember NSAIDS (Non-Steroidal Allergy Severe Cannot Verified 09/24/21 08:10 Anti-Inflamma Remember Penicillins Allergy Severe Hives Verified 09/24/21 08:10 [id number]-[id number] Reductase Allergy Severe Cannot Verified 09/24/21 08:10 Inhibitor Remember [Veoommo-Ibc-Djo Reductase Inhibitor] morphine AdvReac Severe Vomiting Verified 09/24/21 08:10 Home Meds: Home Meds Aspirin [Lo-Dose Aspirin EC] 81 mg PO BEDTIME 06/16/18 [History] Fluticasone Furoate [Flonase Sensimist] 1 spray NASBOTH BID 05/17/18 [History] Furosemide [Lasix] 20 mg PO DAILY 05/17/18 [History] Isosorbide Mononitrate [Imdur] 30 mg PO DAILY 05/17/18 [History] Levothyroxine [Synthroid] 100 mcg PO DAILY 05/17/18 [History] Loratadine [Claritin] 10 mg PO BEDTIME 05/17/18 [History] Nitroglycerin [Nitrostat] 0.4 mg SL ASDIRECTED PRN 05/17/18 [History] atorvaSTATin [Lipitor] 40 mg PO BEDTIME 05/17/18 [History] raNITIdine HCL [Zantac 75] 1 tab PO BID 05/17/18 [History] Loperamide [Imodium AD] 2 - 4 caplet PO ASDIRECTED PRN 05/18/18 [History] Acetaminophen [Tylenol] 650 mg PO Q6H PRN #100 tablet 05/21/18 [Rx] amLODIPine Besylate [Amlodipine Besylate] 5 mg PO BEDTIME #30 tablet 05/21/18 [Rx] atenoloL [Tenormin] 50 mg PO DAILY #30 tablet 05/21/18 [Rx] traZODone HCl [Trazodone HCl] 25 mg PO BEDTIME 09/24/18 [History] Past Medical History HEENT History: Reports: Impaired Vision, Other (See Below) Other HEENT History: pt wears galsses and has an upper denture Cardiovascular History: Reports: CAD, High Cholesterol, Hypertension, DC, Other (See Below) Respiratory History: Reports: Sleep Apnea, SOB Other Respiratory History: pt has a cpap machine and brought it in with her to the hospital. Gastrointestinal History: Reports: None Genitourinary History: Reports: Chronic Renal Insuffiency, Urinary Incontinence, UTI, Recurrent INFECTION CONTROL COORDINATOR History: Reports: None Musculoskeletal History: Reports: None Neurological History: Reports: CVA Psychiatric History: Reports: Dementia Endocrine/Metabolic History: Reports: Hypothyroidism Hematologic History: Reports: None Immunologic History: Reports: None Oncologic (Cancer) History: Reports: None Dermatologic History: Reports: None - Infectious Disease History Infectious Disease History: Reports: Influenza - Past Surgical History Cardiovascular Surgical History: Reports: Coronary Artery Bypass Respiratory Surgical History: Reports: Thoracentesis GI Surgical History: Reports: Cholecystectomy Female Surgical History: Reports: Section, D&C Social & Family History - Family History Family Medical History: No Pertinent Family History - Tobacco Use Tobacco Use Status *Q: Never Tobacco User - Caffeine Use Caffeine Use: Reports: None - Recreational Drug Use Recreational Drug Use: No - Living Situation & Occupation Living situation: Reports: Single, Extended Care Facility ([facility]) Occupation: Retired ED ROS GENERAL - Review of Systems Review Of Systems: See Below Constitutional: Reports: Malaise, Fatigue. Denies: Fever, Chills HEENT: Reports: Glasses Respiratory: Reports: Shortness of Breath. Denies: Wheezing, Pleuritic Chest Pain, Cough, Sputum Cardiovascular: Reports: Blood Pressure Problem, Dyspnea on Exertion. Denies: Chest Pain, Claudication, Edema, Lightheadedness, Orthopnea Endocrine: Reports: Fatigue GI/Abdominal: Reports: Diarrhea (Chronic diarrhea. Uses loperamide almost anamaria ly) : Reports: Frequency, Incontinence (Urge and stress components) Musculoskeletal: Reports: Joint Pain (Both hips knees low back neck and shoulder s.) Skin: Reports: Other (Suffered a triangular skin tear dorsal aspect of her right wrist and hand from fall this morning) Neurological: Reports: Dizziness, Difficulty Walking (Usually uses a cane to aid her ambulation.), Weakness. Denies: Confusion, Headache, Numbness, Syncope, Tingling, Tremors, Trouble Speaking, Change in Speech Psychiatric: Reports: Depression, Other Hematologic/Lymphatic: Reports: No Symptoms (Insomnia) Immunologic: Reports: No Symptoms ED EXAM, GENERAL - Physical Exam Exam: See Below Exam Limited By: No Limitations General Appearance: Alert, WD/WN, Anxious, Mild Distress, Other (Temperature is 36.4 degrees with a heart rate of sinus bradycardia 58/min respiratory to 16 with O2 sats of 97% room air. BP is elevated 187/65) Eye Exam: Bilateral Eye: Normal Inspection (No blepharal pallor or scleral icterus), PERRL Ears: Normal External Exam Throat/Mouth: Normal Inspection, Normal Lips, Normal Oropharynx, Other (Tongue is mildly dry and coated) Head: Atraumatic, Other (No outward signs of head or facial trauma) Neck: Normal Inspection, Limited Range of Motion (Loss of 10 degrees lateral flexion and rotation. Loss of 10 degrees flexion and extension as well). No: Supple, Carotid Bruit, Lymphadenopathy (L), Lymphadenopathy (R) Respiratory/Chest: No Respiratory Distress, No Accessory Muscle Use, Decreased Breath Sounds (Mildly decreased to both lung bases), Other (Compression of chest wall was nonpainful with no obvious rib or sternal injuries. Clavicles and acromioclavicular joints are intact.). No: Rhonchi, Wheezing Cardiovascular: Regular Rate, Rhythm, No Gallop, No Murmur, No Rub. No: Normal Peripheral Pulses, No Edema Peripheral Pulses: 1+: Posterior Tibial (L), Posterior Tibial (R), Dorsalis Pedis (L), Dorsalis Pedis (R) GI/Abdominal: Normal Bowel Sounds, Soft, Non-Tender, No Organomegaly, No Abnormal Bruit, No Mass, Pelvis Stable Back Exam: Other (Mild to moderate kyphosis thoracic spine no injuries to her back identified) Extremities: Pedal Edema (1+ pitting edema bilaterally lower extremities with tenderness to palpation), Other (Very limited range of motion a external and internal rotation of both hips due to osteoarthritic change. Arthritic change apparent in both knees as well. Very superficial abrasion right anterior patella. Good chief crna strength of the right hand with no evidence of fracture wrist or hand bones) Neurological: Alert, Oriented, CN II-XII Intact, Normal Cognition Psychiatric: Anxious (Mildly anxious) Skin Exam: Warm, Dry, Normal Color, Other (Triangular skin tear dorsal aspect of the right hand and wrist. The skin is too thin to be sutured.). No: Intact Course - Vital Signs Text/Narrative:: 81-year-old female presents from one of the local nursing homes after a ground- level fall earlier this morning while traveling from her bed to the bathroom. The only injury appears to be a triangular skin tear over the dorsal aspect of her right wrist and hand. No fractures are evident. Wound was cleansed and skin tear unfolded and placed back into anatomical position. You will act like a skin graft until new skin growing in close the wound. Tegaderm dressing was applied over the wound which should be removed in 5 days time. Last Recorded V/S: Last Vital Signs Temp 36.4 C 09/24/21 08:07 Pulse 58 L 09/24/21 08:07 Resp 16 09/24/21 08:07 BP 187/65 H 09/24/21 08:07 Pulse Ox 97 09/24/21 08:07 - Radiology Interpretation Free Text/Narrative:: 81-year-old female presents to the ED for evaluation of acute injury to the dorsal aspect of her right hand and wrist area. She states that around 0400 hrs. this morning she was getting up to travel from her bed to the bathroom and got tripped up and fell. She is unsure what she struck her hand on. She denies hitting her head or losing consciousness and the only thing that hurts is her right hand. She has a large skin tear in this area which was actively bleeding and has been dressed by nursing staff. She believes her tetanus toxoid is up-to-date. Examination did not reveal any signs of any other bony injuries and no bony injuries to the right hand or wrist itself. She has a large triangular shaped flap superficial skin tear over the dorsal aspect of her right hand and distal forearm. I was able to uncurl a good portion of the skin with forceps and nurses were able to place a sheet of Tegaderm over top of it to maintain position. This will stay in place for the next 4 days and after this will be cleansed daily and then topical antibiotic such as bacitracin or Polysporin to be applied once daily and cover with a bandage until it heals. Follow-up required if any signs of infection develop. Departure - Departure Time of Disposition: 08:29 Disposition: Home, Self-Care 01 Condition: Fair Clinical Impression: Skin tear of right hand without complication Fall Qualifiers: Encounter type: initial encounter Qualified Code(s): W19.XXXA - Unspecified fall, initial encounter - Discharge Information *PRESCRIPTION DRUG MONITORING PROGRAM REVIEWED*: Not Applicable *COPY OF PRESCRIPTION DRUG MONITORING REPORT IN PATIENT MARCELINA: Not Applicable Instructions: Laceration Care, Adult, [id number] Referrals: Kerwin Jorge MD [Primary Care Provider] - Forms: ED Department Discharge Additional Instructions: Evaluation in the emergency room today in regards to injuries to the dorsal aspect of her right hand and wrist from a fall earlier this morning at the [facility]. You have suffered a triangular skin tear over the dorsal right wrist and hand. No other injuries were identified. No bony injuries are identified. It is believed that you are up-to-date on your tetanus, diphtheria and pertussis vaccine. Skin skin tear was cleansed and then covered with Tegaderm dressing which should remain in place for the next 4 days and then be removed. After this the wound should have topical antibiotic such as bacitracin or Polysporin applied to it once daily and covered with bandages until healed which will be about 2 to 3 weeks. Follow-up with personal care physician if any further problems occur Sepsis Event Note (ED) - Evaluation Sepsis Screening Result: No Definite Risk - Focused Exam Vital Signs: Vital Signs Temp Pulse Resp BP Pulse Ox 09/24/21 08:07 36.4 C 58 L 16 187/65 H 97
== END 2021-09-24 08:30 | disposition home or self-care (01) ==
LOC: JD.ED 07:50
DX: S61.411A Laceration without foreign body of right hand, initial encounter (principal); S80.211A Abrasion, right knee, initial encounter; I25.10 Atherosclerotic heart disease of native coronary artery without angina pectoris; E78.00 Pure hypercholesterolemia, unspecified; I12.9 Hypertensive chronic kidney disease with stage 1 through stage 4 chronic kidney disease, or unspecified chronic kidney disease; N18.9 Chronic kidney disease, unspecified; I25.2 Old myocardial infarction; E03.9 Hypothyroidism, unspecified; M19.90 Unspecified osteoarthritis, unspecified site; Z91.012 Allergy to eggs; Z88.6 Allergy status to analgesic agent; Z88.0 Allergy status to penicillin; Z88.8 Allergy status to other drugs, medicaments and biological substances; Z88.5 Allergy status to narcotic agent; Z79.82 Long term (current) use of aspirin; Z79.899 Other long term (current) drug therapy; W18.30XA Fall on same level, unspecified, initial encounter; Y92.129 Unspecified place in nursing home as the place of occurrence of the external cause
CPT/HCPCS: 99282